=== PATIENT | female | born 1990 | race Caucasian/White ===

== ENCOUNTER 2017-01-31 19:01 | Emergency (ER) | payer OTHER ==
[~2017-01-31] VITALS: Ht 172.7 cm; Wt 65.4 kg
[~2017-01-31 19:01] MED LIST: AMOXICILLIN/PO500 MG PO; AMOXICILLIN500 MG PO; CLONAZEPAM0.5 MG PO; FLEXERIL5 M1 PO; KEFLEX500 M1 PO; LORTAB 5/3255 MG PO; NAPROSYN500 MG PO; PRENATAL1 TA1 PO; ROBITUSSIN AC10 ML PO; ULTRAM50 M1 PO; ZOFRAN ODT4 MG PO
[2017-01-31] MEDS ORDERED: PAXIL40 MG PO (19:14)
[2017-01-31] MEDS ORDERED: REQUIP0.5 MG PO (19:14)
[2017-01-31 20:52] LABS: INFLUENZA A NONE DETECTED (NONE DETECT); INFLUENZA B NONE DETECTED (NONE DETECT)
[2017-01-31] MEDS ORDERED: AMOXICILLIN500 MG PO (22:16)
[2017-01-31] MEDS ORDERED: CODEINE/GUAIFEN1 SOL PO (22:16)
[2017-01-31 22:29] VITALS: BP 132/80
== END 2017-01-31 22:29 | disposition home or self-care (01) | DRG 153 ==
LOC: ED 19:01
PROVIDERS: Emergency Medicine
DX: J06.9 Acute upper respiratory infection, unspecified (principal); J40 Bronchitis, not specified as acute or chronic; Z72.0 Tobacco use; R05 Cough

== ENCOUNTER 2017-05-02 07:30 | Emergency (ER) | payer SELFPAY ==
[~2017-05-02] VITALS: Ht 172.7 cm; Wt 63.0 kg
[~2017-05-02 07:30] MED LIST changes: +CODEINE/GUAIFEN1 SOL PO; +PAXIL40 MG PO; +REQUIP0.5 MG PO
[2017-05-02] MEDS ORDERED: BUSPIRONE5 MG PO (07:37)
[2017-05-02 08:12] LABS: INFLUENZA A NONE DETECTED (NONE DETECT); INFLUENZA B NONE DETECTED (NONE DETECT)
[2017-05-02] MEDS ORDERED: ZPAK PO (08:37)
[2017-05-02] MEDS ORDERED: ROBITUSSIN AC10 ML PO (08:37)
[2017-05-02 09:15] VITALS: BP 115/74
[2017-05-03] MEDS ORDERED: METAXALONE PO (00:56)
[2017-05-03] MEDS ORDERED: LORTAB 5/3255 MG PO (00:56)
== END 2017-05-02 09:15 | disposition home or self-care (01) | DRG 552 ==
LOC: ED 07:30
PROVIDERS: Emergency Medicine
DX: S16.1XXA Strain of muscle, fascia and tendon at neck level, initial encounter (principal); M54.5 Low back pain; S00.93XA Contusion of unspecified part of head, initial encounter; V49.49XA Driver injured in collision with other motor vehicles in traffic accident, initial encounter; Y92.413 State road as the place of occurrence of the external cause

== ENCOUNTER 2017-05-02 22:49 | Emergency (ER) | payer OTHER ==
[~2017-05-02] VITALS: Ht 172.7 cm; Wt 68.0 kg
[~2017-05-02 22:49] MED LIST changes: +BUSPIRONE5 MG PO; +ZPAK PO
[2017-05-03] MEDS ORDERED: METAXALONE PO (00:56)
[2017-05-03] MEDS ORDERED: LORTAB 5/3255 MG PO (00:56)
[2017-05-03 01:24] VITALS: BP 96/59
== END 2017-05-03 01:27 | disposition home or self-care (01) | DRG 552 ==
LOC: ED 22:49
DX: S16.1XXA Strain of muscle, fascia and tendon at neck level, initial encounter (principal); M54.5 Low back pain; S00.93XA Contusion of unspecified part of head, initial encounter; V49.49XA Driver injured in collision with other motor vehicles in traffic accident, initial encounter; Y92.413 State road as the place of occurrence of the external cause

== ENCOUNTER 2017-05-11 20:29 | Emergency (ER) | payer MEDICAID ==
[~2017-05-11] VITALS: Ht 172.7 cm; Wt 64.0 kg
[~2017-05-11 20:29] MED LIST changes: +METAXALONE PO
[2017-05-11] MEDS ORDERED: FLEXERIL PO (20:56)
[2017-05-11] MEDS ORDERED: BACTRIM DS1 TAB PO (20:56)
[2017-05-11] MEDS ORDERED: LORTAB 5-325 MG1 TAB PO (20:56)
[2017-05-11] MEDS ORDERED: BENADRYL 50MG C50 MG PO (21:10)
[2017-05-11 21:11] VITALS: BP 123/80
== END 2017-05-11 21:25 | disposition home or self-care (01) | DRG 918 ==
LOC: ED 20:29
DX: T63.301A Toxic effect of unspecified spider venom, accidental (unintentional), initial encounter (principal); L03.115 Cellulitis of right lower limb; L03.116 Cellulitis of left lower limb; Y92.810 Car as the place of occurrence of the external cause

== ENCOUNTER 2017-05-23 19:42 | Emergency (ER) | payer MEDICAID ==
[~2017-05-23 19:42] MED LIST changes: +BACTRIM DS1 TAB PO; +BENADRYL 50MG C50 MG PO; +FLEXERIL PO; +LORTAB 5-325 MG1 TAB PO
[2017-05-24] MEDS ORDERED: LORTAB 5-325 MG1 TAB PO (15:27)
[2017-05-24] MEDS ORDERED: FLEXERIL PO (15:27)
== END 2017-05-23 20:59 | disposition left against medical advice (07) | DRG 951 ==
LOC: ED 19:42 → LWOBS 20:59
DX: Z91.19 Patient's noncompliance with other medical treatment and regimen (principal)

== ENCOUNTER 2017-05-24 15:10 | Emergency (ER) | payer OTHER, MEDICAID ==
[~2017-05-24] VITALS: Ht 172.7 cm; Wt 60.0 kg
[2017-05-24] MEDS ORDERED: FLEXERIL PO (15:27)
[2017-05-24] MEDS ORDERED: LORTAB 5-325 MG1 TAB PO (15:27)
[2017-05-24 15:36] VITALS: BP 132/92
== END 2017-05-24 15:39 | disposition home or self-care (01) | DRG 552 ==
LOC: ED 15:10
DX: S13.9XXA Sprain of joints and ligaments of unspecified parts of neck, initial encounter (principal); S33.9XXA Sprain of unspecified parts of lumbar spine and pelvis, initial encounter; V89.2XXA Person injured in unspecified motor-vehicle accident, traffic, initial encounter

== ENCOUNTER 2017-06-12 10:27 | Emergency (ER) | payer MEDICAID ==
[~2017-06-12] VITALS: Ht 172.7 cm; Wt 64.0 kg
[2017-06-12 11:32] LABS: HEMATOCRIT 37.5 % (37.0-47.0); IMMATURE GRANULOCYTES 0.4 % (0.0-1.0); MEAN CELL VOLUME 87.2 fL CALC (80.0-100.0); MEAN CORPUSCULAR HGB 30.2 pG CALC (26.0-32.0); MEAN CORPUSCULAR HGB CONC 34.7 g/L CALC (32.0-36.0); NEUT# 10.9 thou/uL (2.00-7.15); RED BLOOD COUNT 4.3 mill/uL (4.20-5.60)
[2017-06-12 11:59] LABS: ALBUMIN 4.3 g/dL (3.2-5.0); ALKALINE PHOSPHATASE 84 u/l (38-126); ANION GAP 14 (6-22 (CALC)); BILIRUBIN, TOTAL 0.3 mg/dL (0.0-1.4); BUN 10 mg/dL (7-17); BUN/CREATININE RATIO 19 (12-20 (CALC)); CALCIUM 9.2 mg/dL (8.4-10.2); CARBON DIOXIDE 25 mmol/l (22-30); CHLORIDE 103 mmol/l (95-108); CREATININE 0.5 mg/dL (0.5-1.0); GFR > 60 ML/MIN (>=60 (CALC)); GFR FOR AFR.AMER. > 60 ML/MIN (>=60 (CALC)); GLUCOSE 107 mg/dL (65-105); POTASSIUM 3.8 mmol/l (3.5-5.1); SGOT/AST 28 u/l (14-36); SGPT/ALT 34 u/l (9-52); SODIUM 138 mmol/l (137-146); TOTAL PROTEIN 7.2 g/dL (6.3-8.2)
[2017-06-12] MEDS ORDERED: MEDDOSEPAK PO (12:11)
[2017-06-12] MEDS ORDERED: ZPAK PO (12:11)
[2017-06-12 12:29] VITALS: BP 119/78
== END 2017-06-12 12:30 | disposition home or self-care (01) | DRG 203 ==
LOC: ED 10:27
PROVIDERS: Emergency Medicine
DX: J45.901 Unspecified asthma with (acute) exacerbation (principal); R50.9 Fever, unspecified; Z87.891 Personal history of nicotine dependence; R06.02 Shortness of breath; R05 Cough

== ENCOUNTER 2017-06-20 17:18 | Emergency (ER) | payer MEDICAID ==
[~2017-06-20] VITALS: Ht 172.7 cm; Wt 64.0 kg
[~2017-06-20 17:18] MED LIST changes: +MEDDOSEPAK PO
[2017-06-20] MEDS ORDERED: PENICILLN VK500 MG PO (17:34)
[2017-06-20] MEDS ORDERED: LORTAB 5-325 MG1 TAB PO (17:34)
[2017-06-20] MEDS ORDERED: NICODERM C21 MG/242 TD (17:35)
[2017-06-20 17:40] VITALS: BP 123/57
== END 2017-06-20 17:40 | disposition home or self-care (01) | DRG 159 ==
LOC: ED 17:18
DX: M27.3 Alveolitis of jaws (principal); F17.210 Nicotine dependence, cigarettes, uncomplicated

== ENCOUNTER 2017-06-26 16:29 | Emergency (ER) | payer MEDICAID ==
[~2017-06-26] VITALS: Ht 172.7 cm; Wt 55.0 kg
[~2017-06-26 16:29] MED LIST changes: +NICODERM C21 MG/242 TD; +PENICILLN VK500 MG PO
[2017-06-26] MEDS ORDERED: CLINDAMYCIN300 M1 PO (16:55)
[2017-06-26 17:14] VITALS: BP 125/86
== END 2017-06-26 17:15 | disposition home or self-care (01) | DRG 153 ==
LOC: ED 16:29
DX: J02.9 Acute pharyngitis, unspecified (principal); R05 Cough; K08.89 Other specified disorders of teeth and supporting structures; S02.5XXA Fracture of tooth (traumatic), initial encounter for closed fracture

== ENCOUNTER 2017-07-03 23:19 | Emergency (ER) | payer MEDICAID ==
[~2017-07-03] VITALS: Ht 172.7 cm; Wt 63.6 kg
[~2017-07-03 23:19] MED LIST changes: +CLINDAMYCIN300 M1 PO
[2017-07-04 00:39] LABS: IMMATURE GRANULOCYTES 0.2 % (0.0-1.0); MEAN CELL VOLUME 90.7 fL CALC (80.0-100.0); MEAN CORPUSCULAR HGB 30.2 pG CALC (26.0-32.0); MEAN CORPUSCULAR HGB CONC 33.3 g/L CALC (32.0-36.0); NEUT# 8.38 thou/uL (2.00-7.15); RED BLOOD COUNT 4.3 mill/uL (4.20-5.60); RED CELL DISTRI WIDTH 15.3 % (11.5-15.5)
[2017-07-04 00:49] LABS: ALBUMIN 4.5 g/dL (3.2-5.0); ALKALINE PHOSPHATASE 74 u/l (38-126); ANION GAP 19 (6-22 (CALC)); BILIRUBIN, TOTAL 0.5 mg/dL (0.0-1.4); BUN 10 mg/dL (7-17); BUN/CREATININE RATIO 18 (12-20 (CALC)); CALCIUM 9.6 mg/dL (8.4-10.2); CARBON DIOXIDE 21 mmol/l (22-30); CHLORIDE 107 mmol/l (95-108); CREATININE 0.5 mg/dL (0.5-1.0); ETHYL ALCOHOL 0 mg/dl (0-30); GFR > 60 ML/MIN (>=60 (CALC)); GFR FOR AFR.AMER. > 60 ML/MIN (>=60 (CALC)); GLUCOSE 100 mg/dL (65-105); POTASSIUM 4.3 mmol/l (3.5-5.1); SGOT/AST 28 u/l (14-36); SGPT/ALT 29 u/l (9-52); SODIUM 142 mmol/l (137-146); TOTAL PROTEIN 7.7 g/dL (6.3-8.2)
[2017-07-04 02:12] LABS: URINE BILIRUBIN - DIPSTICK NEGATIVE (NEGATIVE); URINE BLOOD DIPSTICK MODERATE (NEGATIVE); URINE CLARITY CLEAR; URINE COLOR YELLOW; URINE GLUCOSE - DIPSTICK NEGATIVE (NEGATIVE); URINE KETONE TRACE mg/dL (NEGATIVE); URINE LEUK ESTERASE NEGATIVE (NEGATIVE); URINE NITRITE - DIPSTICK NEGATIVE (Negative); URINE PROTEIN - DIPSTICK TRACE mg/dL (NEG-TRACE); URINE SPECIFIC GRAVITY 1.025; URINE UROBILINOGEN - DIPSTICK 0.2 E.U./dL (0.2)
[2017-07-04 02:17] LABS: COCAINE NEGATIVE (NEGATIVE); METHADONE NEGATIVE (NEGATIVE); TETRAHYDROCANNABIONOL NEGATIVE (NEGATIVE)
[2017-07-04 02:18] LABS: BARBITURATES NEGATIVE (NEGATIVE); OXCYCODONE POSITIVE (NEGATIVE); TRICYLIC ANTIDEPRESSANTS NEGATIVE (NEGATIVE)
[2017-07-04 02:27] LABS: URINE BACTERIA MODERATE hpf; URINE CALCIUM OXALATE CRYSTALS FEW lpf; URINE SQUAMOUS EPITHELIAL CELL FEW EPI/hpf (0-FEW); URINE WBC 0-2 WBC/hpf (0-5)
[2017-07-04] MEDS ORDERED: KLONOPIN1 MG PO (04:47)
[2017-07-04 06:59] VITALS: BP 127/76
== END 2017-07-04 07:02 | disposition home or self-care (01) | DRG 93 ==
LOC: ED 23:19
PROVIDERS: Emergency Medicine
DX: R25.1 Tremor, unspecified (principal)
CPT/HCPCS: J2060

== ENCOUNTER 2018-09-19 17:40 | Emergency (ER) | payer MEDICAID ==
[~2018-09-19] VITALS: Ht 172.7 cm; Wt 68.2 kg
[~2018-09-19 17:40] MED LIST changes: +KLONOPIN1 MG PO
[2018-09-19] MEDS ORDERED: CLONAZEPAM0.5 M1 PO (18:03)
[2018-09-19 18:18] VITALS: BP 140/92
[2018-09-19] MEDS ORDERED: BUSPAR5 MG PO (19:28)
== END 2018-09-19 18:18 | disposition home or self-care (01) ==
LOC: ED 17:40
DX: F41.9 Anxiety disorder, unspecified (principal); F17.210 Nicotine dependence, cigarettes, uncomplicated; R61 Generalized hyperhidrosis; R56.9 Unspecified convulsions; Z76.0 Encounter for issue of repeat prescription

== ENCOUNTER 2018-09-19 19:01 | Emergency (ER) | payer MEDICAID ==
[~2018-09-19] VITALS: Ht 172.7 cm; Wt 68.0 kg
[~2018-09-19 19:01] MED LIST changes: +CLONAZEPAM0.5 M1 PO
[2018-09-19] MEDS ORDERED: BUSPAR5 MG PO (19:28)
[2018-09-19 20:13] VITALS: BP 122/71
== END 2018-09-19 20:13 | disposition home or self-care (01) ==
LOC: ED 19:01
DX: F41.9 Anxiety disorder, unspecified (principal)

== ENCOUNTER 2019-08-27 08:40 | Emergency (ER) | payer OTHER ==
[~2019-08-27] VITALS: Ht 172.7 cm; Wt 90.0 kg
[~2019-08-27 08:40] MED LIST changes: +BUSPAR5 MG PO
[2019-08-27] MEDS ORDERED: HYDROCO/APAP1 TA9 PO (09:09)
[2019-08-27] MEDS ORDERED: KEFLEX500 MG PO (09:09)
[2019-08-27 09:20] VITALS: BP 127/58
== END 2019-08-27 09:24 | disposition home or self-care (01) ==
LOC: ED 08:40
DX: K02.9 Dental caries, unspecified (principal); F17.200 Nicotine dependence, unspecified, uncomplicated

== ENCOUNTER 2019-09-22 13:12 | Emergency (ER) | payer OTHER ==
[~2019-09-22] VITALS: Ht 175.3 cm; Wt 63.0 kg
[~2019-09-22 13:12] MED LIST changes: +CLONAZEPAM1 MG PO; +HYDROCO/APAP1 TA9 PO; +KEFLEX500 MG PO
[2019-09-22] MEDS ORDERED: TYLENOL # 31 TA1 PO (13:34)
[2019-09-22 14:21] LABS: HEMATOCRIT 38.7 % (37.0-47.0); IMMATURE GRANULOCYTES 0.2 % (0.0-5.0); MEAN CORPUSCULAR HGB 30.2 pG CALC (26.0-32.0); MEAN CORPUSCULAR HGB CONC 33.6 g/L CALC (32.0-36.0); NEUT# 7.41 thou/uL (2.00-7.15); RED BLOOD COUNT 4.3 mill/uL (4.20-5.60); RED CELL DISTRI WIDTH 12.8 % (11.5-15.5)
[2019-09-22 14:46] LABS: ALBUMIN 4.1 g/dL (3.2-5.0); ALKALINE PHOSPHATASE 62 u/l (38-126); ANION GAP 11 (6-22 (CALC)); BILIRUBIN, TOTAL 0.4 mg/dL (0.0-1.4); BUN 14 mg/dL (7-17); BUN/CREATININE RATIO 22 (12-20 (CALC)); CARBON DIOXIDE 28 mmol/l (22-30); CHLORIDE 101 mmol/l (95-108); CREATININE 0.6 mg/dL (0.5-1.0); GFR > 60 ML/MIN (>=60 (CALC)); GFR FOR AFR.AMER. > 60 ML/MIN (>=60 (CALC)); POTASSIUM 4.3 mmol/l (3.5-5.1); SGOT/AST 29 u/l (14-36); SODIUM 136 mmol/l (137-146); TOTAL PROTEIN 7.2 g/dL (6.3-8.2)
[2019-09-22] MEDS ORDERED: AMOXICILLIN500 MG PO (15:11)
[2019-09-22] MEDS ORDERED: PERCOCET 10/31 COMBO PO (15:11)
[2019-09-22 15:20] VITALS: BP 119/78
== END 2019-09-22 15:28 | disposition home or self-care (01) ==
LOC: ED 13:12
PROVIDERS: Emergency Medicine
DX: K08.89 Other specified disorders of teeth and supporting structures (principal); K08.409 Partial loss of teeth, unspecified cause, unspecified class; F17.210 Nicotine dependence, cigarettes, uncomplicated; R53.1 Weakness; R11.2 Nausea with vomiting, unspecified

== ENCOUNTER 2019-11-11 20:55 | Emergency (ER) | payer OTHER ==
[~2019-11-11] VITALS: Ht 175.3 cm; Wt 90.0 kg
[~2019-11-11 20:55] MED LIST changes: +PERCOCET 10/31 COMBO PO; +TYLENOL # 31 TA1 PO
[2019-11-11] MEDS ORDERED: PERMETHRIN5 % EX (21:18)
[2019-11-11 21:30] VITALS: BP 134/76
== END 2019-11-11 21:37 | disposition home or self-care (01) ==
LOC: ED 20:55
DX: R23.8 Other skin changes (principal); F17.210 Nicotine dependence, cigarettes, uncomplicated; Z20.7 Contact with and (suspected) exposure to pediculosis, acariasis and other infestations

== ENCOUNTER 2020-03-01 13:22 | Emergency (ER) | payer OTHER ==
[~2020-03-01 13:22] MED LIST changes: +PERMETHRIN5 % EX
[2020-03-01] MEDS ORDERED: CLINDAMYCIN300 M1 PO (13:49)
[2020-03-01] MEDS ORDERED: PENICILLN VK500 MG PO (13:51)
[2020-03-01 14:04] VITALS: BP 127/73
== END 2020-03-01 14:05 | disposition home or self-care (01) ==
LOC: ED 13:22
DX: G89.18 Other acute postprocedural pain (principal); K08.409 Partial loss of teeth, unspecified cause, unspecified class; F17.200 Nicotine dependence, unspecified, uncomplicated

== ENCOUNTER 2020-04-08 11:14 | Emergency (ER) | payer OTHER ==
[2020-04-08 11:57] LABS: HEMATOCRIT 33.4 % (37.0-47.0); HEMOGLOBIN 11.4 g/dl (12.0-16.0); IMMATURE GRANULOCYTES 0.4 % (0.0-5.0); MEAN CELL VOLUME 87.9 fL CALC (80.0-100.0); MEAN CORPUSCULAR HGB CONC 34.1 g/dL CAL (32.0-36.0); NEUT# 4.56 thou/uL (2.00-7.15); RED BLOOD COUNT 3.8 mill/uL (4.20-5.60); RED CELL DISTRI WIDTH 13.2 % (11.5-15.5)
[2020-04-08 12:12] LABS: ALBUMIN 4.2 g/dL (3.2-5.0); ALKALINE PHOSPHATASE 84 u/l (38-126); ANION GAP 11 (6-22 (CALC)); BILIRUBIN, TOTAL 0.3 mg/dL (0.0-1.4); BUN 8 mg/dL (7-17); BUN/CREATININE RATIO 12 (12-20 (CALC)); CARBON DIOXIDE 28 mmol/l (22-30); CHLORIDE 99 mmol/l (95-108); CREATININE 0.7 mg/dL (0.5-1.0); GFR > 60 ML/MIN (>=60 (CALC)); GFR FOR AFR.AMER. > 60 ML/MIN (>=60 (CALC)); POTASSIUM 3.7 mmol/l (3.5-5.1); SGOT/AST 38 u/l (14-36); SODIUM 134 mmol/l (137-146); TOTAL PROTEIN 7.2 g/dL (6.3-8.2)
[2020-04-08 12:43] LABS: TSH, 3RD GENERATION 3.68 uIU/mL (0.47 - 4.68)
[2020-04-08 13:04] LABS: URINE BILIRUBIN - DIPSTICK NEGATIVE (NEGATIVE); URINE BLOOD DIPSTICK NEGATIVE (NEGATIVE); URINE COLOR YELLOW; URINE GLUCOSE - DIPSTICK NEGATIVE (NEGATIVE); URINE KETONE NEGATIVE (NEGATIVE); URINE LEUK ESTERASE NEGATIVE (NEGATIVE); URINE NITRITE - DIPSTICK NEGATIVE (Negative); URINE PH 6.5 (4.5-8.0); URINE PROTEIN - DIPSTICK NEGATIVE (NEG-TRACE); URINE SPECIFIC GRAVITY <=1.005; URINE UROBILINOGEN - DIPSTICK 0.2 E.U./dL (0.2)
[2020-04-08 14:32] VITALS: BP 124/71
== END 2020-04-08 14:37 | disposition home or self-care (01) ==
LOC: ED 11:14
DX: R60.0 Localized edema (principal); R07.9 Chest pain, unspecified; F17.210 Nicotine dependence, cigarettes, uncomplicated; R06.02 Shortness of breath

== ENCOUNTER 2020-05-11 13:00 | Emergency (ER) | payer OTHER ==
[~2020-05-11] VITALS: Ht 175.3 cm; Wt 280.0 kg
[2020-05-11 14:22] LABS: HEMATOCRIT 32.2 % (37.0-47.0); HEMOGLOBIN 10.7 g/dl (12.0-16.0); IMMATURE GRANULOCYTES 0.1 % (0.0-5.0); MEAN CELL VOLUME 88.7 fL CALC (80.0-100.0); MEAN CORPUSCULAR HGB 29.5 pG CALC (26.0-32.0); MEAN CORPUSCULAR HGB CONC 33.2 g/dL CAL (32.0-36.0); NEUT# 4.77 thou/uL (2.00-7.15); RED BLOOD COUNT 3.63 mill/uL (4.20-5.60); RED CELL DISTRI WIDTH 13.1 % (11.5-15.5)
[2020-05-11 14:50] LABS: URINE BILIRUBIN - DIPSTICK NEGATIVE (NEGATIVE); URINE BLOOD DIPSTICK NEGATIVE (NEGATIVE); URINE COLOR YELLOW; URINE GLUCOSE - DIPSTICK NEGATIVE (NEGATIVE); URINE KETONE NEGATIVE (NEGATIVE); URINE LEUK ESTERASE NEGATIVE (NEGATIVE); URINE NITRITE - DIPSTICK NEGATIVE (Negative); URINE PH 6.5 (4.5-8.0); URINE PROTEIN - DIPSTICK NEGATIVE (NEG-TRACE); URINE SPECIFIC GRAVITY <=1.005; URINE UROBILINOGEN - DIPSTICK 0.2 E.U./dL (0.2)
[2020-05-11 15:34] LABS: ALBUMIN 3.9 g/dL (3.2-5.0); ALKALINE PHOSPHATASE 73 u/l (38-126); ANION GAP 9 (6-22 (CALC)); BILIRUBIN, TOTAL 0.4 mg/dL (0.0-1.4); BUN 5 mg/dL (7-17); BUN/CREATININE RATIO 8 (12-20 (CALC)); C-REACTIVE PROTEIN 1.2 mg/dL (0-0.9); CARBON DIOXIDE 29 mmol/l (22-30); CHLORIDE 100 mmol/l (95-108); CREATININE 0.6 mg/dL (0.5-1.0); GFR > 60 ML/MIN (>=60 (CALC)); GFR FOR AFR.AMER. > 60 ML/MIN (>=60 (CALC)); MAGNESIUM 1.7 mg/dL (1.6-2.3); POTASSIUM 3.6 mmol/l (3.5-5.1); SGOT/AST 53 u/l (14-36); SODIUM 134 mmol/l (137-146); TOTAL PROTEIN 6.9 g/dL (6.3-8.2)
[2020-05-11] MEDS ORDERED: METHADONE10 M1 PO (15:36)
[2020-05-11] MEDS ORDERED: KLONOPIN0.5 MG PO (15:36)
[2020-05-11 17:03] VITALS: BP 102/58
== END 2020-05-11 17:05 | disposition home or self-care (01) ==
LOC: ED 13:00
DX: R60.0 Localized edema (principal); F17.200 Nicotine dependence, unspecified, uncomplicated; Z20.828 Contact with and (suspected) exposure to other viral communicable diseases